=== PATIENT | female | born 1990 | race Two or more races ===

== ENCOUNTER 2017-11-26 12:47 | Emergency (ER) | payer SELFPAY ==
[~2017-11-26] VITALS: Ht 157.5 cm; Wt 54.4 kg
[2017-11-26 12:50] VITALS: BP 128/76
== END 2017-11-26 13:17 | disposition home or self-care (01) ==
LOC: ER 12:54
DX: F29 Unspecified psychosis not due to a substance or known physiological condition (principal)
CPT/HCPCS: A4606; Z7610